=== PATIENT | female | born 1960 | race Caucasian/White ===

== ENCOUNTER 2024-12-18 19:29 | Emergency (ER) | payer MEDICARE ==
[2024-12-18] MEDS: Amoxicillin/Clavulanate K 875-125 MG Tab PO ONE (21:30)
== END 2024-12-18 21:53 | disposition home or self-care (01) ==
LOC: JP.ED 19:29
DX: L03.116 Cellulitis of left lower limb (principal); B00.9 Herpesviral infection, unspecified; Z91.048 Other nonmedicinal substance allergy status; Z79.899 Other long term (current) drug therapy
CPT/HCPCS: 99283; A9270